=== PATIENT | female | born 1995 | race Hispanic/Latino ===

== ENCOUNTER 2020-02-15 12:27 | Emergency (ER) | payer MEDICAID ==
[2020-02-15] MEDS ORDERED: DIATR MEGLU/DIATRIZOATE SODIUM 30 ML BOTTLE ONE (14:08)
== END 2020-02-15 16:08 | disposition home or self-care (01) ==
LOC: EDH 12:27
DX: K94.20 Gastrostomy complication, unspecified (principal); Z91.040 Latex allergy status
CPT/HCPCS: 74018; 99283; Q9963